=== PATIENT | male | born 1985 | race Two or more races ===

== ENCOUNTER 2019-07-25 06:34 | Emergency (ER) | payer OTHER ==
[2019-07-25] MEDS ORDERED: Aspirin 81 MG Tab.Chew PO ONE (07:01)
[2019-07-25] MEDS ORDERED: Sodium Chloride 0.9% 10 ML Syringe FLUSH PRN (07:01)
[2019-07-25] MEDS ORDERED: Sodium Chloride 0.9% 2.5 ML Syringe FLUSH PRN (07:01)
--- NOTE | 2019-07-25 07:08 | EDM.PDOC ---
ED HPI GENERAL MEDICAL PROBLEM - General Chief Complaint: Chest Pain Stated Complaint: CHEST PAIN Time Seen by Provider: 07/25/19 06:56 Source of Information: Reports: Patient History Limitations: Reports: No Limitations - History of Present Illness INITIAL COMMENTS - FREE TEXT/NARRATIVE: History of present illness: []Patient states he woke up yesterday morning at 4:30 with substernal sharp chest pain that was nonradiating. Has never had this pain in the past. He denies any shortness of breath, dizziness, sweatiness or syncope. He took Motrin for the pain and called in sick for work yesterday and is also requesting a work note. All day yesterday in bed but the pain continued. It is worse with deep breathing. He denies any recent illness including fevers, chills , cough or any other symptoms. Review of systems: As per history of present illness and below otherwise all systems reviewed and negative. Past medical history: As per history of present illness and as reviewed below otherwise noncontributory. Surgical history: As per history of present illness and as reviewed below otherwise noncontributory. Social history: No reported history of drug or alcohol abuse. Family history: As per history of present illness and as reviewed below otherwise noncontributory. Physical exam: General: Well developed, well nourished in NAD HEENT: Atraumatic, normocephalic, pupils reactive, negative for conjunctival pallor or scleral icterus, mucous membranes moist, throat clear, neck supple, nontender, trachea midline. Lungs: Clear to auscultation, breath sounds equal bilaterally, chest nontender. No rales or rhonchi Heart: S1S2, regular, negative for clicks, rubs, or JVD. Abdomen: NABS, Soft, nondistended, nontender. Negative for masses or hepatosplenomegaly. Negative for costovertebral tenderness. Pelvis: Stable nontender. Genitourinary: Deferred. Rectal: Deferred. Extremities: Atraumatic, negative for cords or calf pain. Neurovascular unremarkable. Neuro: Awake, alert, oriented. Cranial nerves II through XII unremarkable. Cerebellum unremarkable. Motor and sensory unremarkable throughout. Exam nonfocal. Skin:warm and dry Diagnostics: EKG, chest x-ray, CBC, chemistry, troponin Therapeutics: Aspirin, Toradol ED Course: stable Impression: pleurisy Prescriptions: none Plan: IBU for pain, follow up with pmd Definitive disposition and diagnosis as appropriate pending reevaluation and review of above. chest Pain Score (Numeric/FACES): 5 - Related Data Allergies Allergy/AdvReac Type Severity Reaction Status Date / Time No Known Allergies Allergy Verified 07/25/19 06:44 Home Meds: Home Meds . [No Known Home Meds] 10/03/18 [History] Past Medical History - Past Health History Medical/Surgical History: Denies Medical/Surgical History - Infectious Disease History Infectious Disease History: Reports: Chicken Pox Social & Family History - Family History Family Medical History: Noncontributory Cardiac: Reports: Hypertension - Tobacco Use Smoking Status *Q: Current Every Day Smoker Years of Tobacco use: 2 Packs/Tins Daily: 1 - Caffeine Use Caffeine Use: Reports: Coffee - Recreational Drug Use Recreational Drug Use: No ED ROS GENERAL - Review of Systems Review Of Systems: See Below ED EXAM, GENERAL - Physical Exam Exam: See Below Course - Vital Signs Last Recorded V/S: Last Vital Signs Temp 97.3 F 07/25/19 06:34 Pulse 56 L 07/25/19 07:59 Resp 16 07/25/19 07:59 BP 106/63 07/25/19 07:59 Pulse Ox 98 07/25/19 07:59 - Orders/Labs/Meds Orders: Active Orders 24 hr Category Date Time Status Cardiac Monitoring [RC] . DIRECTED Care 07/25/19 06:40 Active EKG Documentation Completion [RC] STAT Care 07/25/19 06:40 Active Oxygen Therapy, ED [RC] ASDIRECTED Care 07/25/19 06:40 Active Pulse Oximetry [RC] ASDIRECTED Care 07/25/19 06:40 Active Sodium Chloride 0.9% [Saline Flush] Med 07/25/19 07:01 Active 10 ml FLUSH ASDIRECTED PRN Sodium Chloride 0.9% [Saline Flush] Med 07/25/19 07:01 Active 2.5 ml FLUSH ASDIRECTED PRN Saline Lock Insert [OM.PC] Stat Oth 07/25/19 07:01 Ordered Medication Orders Sodium Chloride (Saline Flush) 10 ml FLUSH ASDIRECTED PRN PRN Reason: Keep Vein Open Last Admin: 07/25/19 07:13 Dose: 10 ml Sodium Chloride (Saline Flush) 2.5 ml FLUSH ASDIRECTED PRN PRN Reason: Keep Vein Open Last Admin: 07/25/19 07:13 Dose: 2.5 ml Labs: Laboratory Tests 07/25/19 07/25/19 Range/Units 07:10 07:10 WBC 8.92 (4.0-11.0) K/uL RBC 5.23 (4.50-5.90) M/uL Hgb 15.9 (13.0-17.0) g/dL Hct 46.2 (38.0-50.0) % MCV 88.3 (80.0-98.0) fL MCH 30.4 (27.0-32.0) pg MCHC 34.4 (31.0-37.0) g/dL RDW Std Deviation 44.7 (28.0-62.0) fl RDW Coeff of Winnie 14 (11.0-15.0) % Plt Count 230 (150-400) K/uL MPV 10.10 (7.40-12.00) fL Neut % (Auto) 50.3 (48.0-80.0) % Lymph % (Auto) 36.1 (16.0-40.0) % Hamlin % (Auto) 9.8 (0.0-15.0) % Eos % (Auto) 3.5 (0.0-7.0) % Baso % (Auto) 0.3 (0.0-1.5) % Neut # (Auto) 4.5 (1.4-5.7) K/uL Lymph # (Auto) 3.2 H (0.6-2.4) K/uL Hamlin # (Auto) 0.9 H (0.0-0.8) K/uL Eos # (Auto) 0.3 (0.0-0.7) K/uL Baso # (Auto) 0.0 (0.0-0.1) K/uL Nucleated RBC % 0.0 /100WBC Nucleated RBCs # 0 K/uL Sodium 139 (136-148) mmol/L Potassium 4.2 (3.5-5.1) mmol/L Chloride 103 (98-107) mmol/L Carbon Dioxide 28.3 (21.0-32.0) mmol/L BUN 11 (7.0-18.0) mg/dL Creatinine 0.9 (0.8-1.3) mg/dL Est Cr Clr Drug Dosing 113.47 mL/min Estimated GFR (MDRD) > 60.0 ml/min Glucose 90 (74-106) mg/dL Calcium 8.8 (8.5-10.1) mg/dL Total Bilirubin 0.6 (0.2-1.0) mg/dL AST 23 (15-37) IU/L ALT 28 (14-63) IU/L Alkaline Phosphatase 76 (46-116) U/L Troponin I < 0.050 (0.000-0.056) ng/mL Total Protein 7.7 (6.4-8.2) g/dL Albumin 3.8 (3.4-5.0) g/dL Globulin 3.9 (2.6-4.0) g/dL Albumin/Globulin Ratio 1.0 (0.9-1.6) Meds: Medications Generic Name Dose Route Start Last Admin Trade Name [place] PRN Reason Stop Dose Admin Sodium Chloride 10 ml 07/25/19 07:01 07/25/19 07:13 Saline Flush FLUSH 10 ml ASDIRECTED PRN Administration Keep Vein Open Sodium Chloride 2.5 ml 07/25/19 07:01 07/25/19 07:13 Saline Flush FLUSH 2.5 ml ASDIRECTED PRN Administration Keep Vein Open Discontinued Medications Generic Name Dose Route Start Last Admin Trade Name Zulma PRN Reason Stop Dose Admin Aspirin 324 mg 07/25/19 07:01 07/25/19 07:13 Aspirin PO 07/25/19 07:02 324 mg ONETIME ONE Administration Departure - Departure Time of Disposition: 07:59 Disposition: Home, Self-Care 01 Condition: Good Clinical Impression: Pleurisy Instructions: Pleurisy, [id number] Referrals: PCP,None [Primary Care Provider] - Forms: ED Department Discharge - My Orders Last 24 Hours: My Active Orders 07/25/19 07:01 Sodium Chloride 0.9% [Saline Flush] 10 ml FLUSH ASDIRECTED PRN Sodium Chloride 0.9% [Saline Flush] 2.5 ml FLUSH ASDIRECTED PRN Saline Lock Insert [OM.PC] Stat - Assessment/Plan Last 24 Hours: My Active Orders 07/25/19 07:01 Sodium Chloride 0.9% [Saline Flush] 10 ml FLUSH ASDIRECTED PRN Sodium Chloride 0.9% [Saline Flush] 2.5 ml FLUSH ASDIRECTED PRN Saline Lock Insert [OM.PC] Stat
--- NOTE | 2019-07-25 07:31 | CR ---
HISTORY: Chest pain. TECHNIQUE: One view of the chest. COMPARISON: No prior. FINDINGS: Calcified granuloma within the right lateral costophrenic angle. No acute lung infiltrate or pulmonary edema. No pneumothorax or pleural effusion. Cardiac size within normal limits. No pulmonary vascular redistribution. IMPRESSION: 1. No acute disease. 2. Calcified granuloma within the right lateral costophrenic angle. Dictated by Francesco Sam MD @ 07/25/2019 7:30:51 AM Dictated by: Francesco Sam MD @ 07/25/2019 07:30:56 (Electronically Signed)
[2019-07-25 07:50] LABS: BLOOD UREA NITROGEN,BUN 11 mg/dL (7.0-18.0); CARBON DIOXIDE,CO2 28.3 mmol/L (21.0-32.0); CHLORIDE,CL 103 mmol/L (98-107); GLUCOSE RANDOM 90 mg/dL (74-106); POTASSIUM,K 4.2 mmol/L (3.5-5.1); SODIUM,NA 139 mmol/L (136-148)
== END 2019-07-25 08:10 | disposition home or self-care (01) ==
LOC: MW.ED 06:34
DX: R09.1 Pleurisy (principal); F17.210 Nicotine dependence, cigarettes, uncomplicated
CPT/HCPCS: 36415; 71045; 80053; 84484; 85025; 93005; 99285; A9270

== ENCOUNTER 2021-06-10 18:33 | Emergency (ER) | payer SELFPAY ==
--- NOTE | 2021-06-10 19:09 | EDM.PDOC ---
ED HPI GENERAL MEDICAL PROBLEM - General Chief Complaint: Upper Extremity Injury/Pain Stated Complaint: FELL AND BENT RIGHT INDEX FINGER BACK Time Seen by Provider: 06/10/21 18:39 Source of Information: Reports: Patient History Limitations: Reports: No Limitations - History of Present Illness INITIAL COMMENTS - FREE TEXT/NARRATIVE: HISTORY AND PHYSICAL: History of present illness: Patient is a 36-year-old male who presents to the emergency room with complaints of right index finger pain. Patient states he was falling and attempted to catch himself, causing his right index finger to hyperextend backward. Patient denies any fever, chills, headache, change in vision, syncope or near syncope. Denies any chest pain, back pain, shortness of breath or cough. Denies any GI or symptoms. Review of systems: As per history of present illness and below otherwise all systems reviewed and negative. Past medical history: As per history of present illness and as reviewed below otherwise noncontributory. Surgical history: As per history of present illness and as reviewed below otherwise noncontributory. Social history: See social history for further information Family history: As per history of present illness and as reviewed below otherwise noncontributory. Physical exam: General: Well developed and well nourished. Alert and orientated x 3. Nontoxic in appearance and in no acute distress. Vital signs are stable and have been reviewed by me. Nursing notes were reviewed. HEENT: Atraumatic, normocephalic, pupils equal and reactive bilaterally, negative for conjunctival pallor or scleral icterus, mucous membranes moist, trachea midline. No drooling or trismus noted. No meningeal signs. No hot potato voice noted. Lungs: Clear to auscultation bilaterally. Normal work of breathing, no accessory muscles used. Heart: S1S2, regular rate and rhythm without overt murmur, gallops, or rubs. No JVD. No peripheral edema Abdomen: Soft, nondistended, nontender. Skin: Mild soft tissue swelling at base of right index finger. Skin is intact, warm, dry. No lesions or rashes noted. Hematologic: No petechiae or purpra. Mucosa appropriate color and normal nail bed color and refill. Extremities: Moves all extremities per self without difficulty or deficits. Good flexion and extension of affected finger. Pain with palpation of PIP of right index finger. SEE SKIN. Cap refill less than 3 seconds. Neurovascular unremarkable. Neuro: Awake, alert, oriented. Cranial nerves II through XII unremarkable. Cerebellum unremarkable. Motor and sensory unremarkable throughout. Exam nonfocal. Psychiatric: Mood and affect are appropriate. Normal thought process. Answering questions appropriately. Notes: *This patient was seen and evaluated during the 2019 SARS-CoV-2 novel coronavirus pandemic period. Community viral transmission is ongoing at time of this encounter and the emergency department is operating under pandemic response procedures. Patient is a 36-year-old male who presents to the emergency room with complaints of a hyperextension injury of his right index finger. He has pain at the PIP joint. Otherwise has full range of motion with mild swelling noted at the base. We will obtain an x-ray. I did offer to give him something for pain which he declines at this time. X-ray shows no acute findings. 1/2 cast fiber glass splint for hyperextension injury of right index finger. To wear over the next 1-3 days or until follow up with hand surgeon. I have talked with the patient about today's findings, in addition to providing specific details for plan of care. Reassessment at the time of disposition demonstrates that the patient is in no acute distress. The patient is stable for discharge, counseling was provided and we discussed in great detail signs and symptoms that would prompt them to return to the Emergency Department. Medication, follow up and supportive care measures were reviewed and discussed. Voices understanding and is agreeable to plan of care. Denies any further questions or concerns at this time. Diagnostics: Finger x-ray Therapeutics: Fiberglas splint for comfort Prescription: Ibuprofen Impression: Hyper extension injury of finger Plan: 1. You were evaluated today on an emergent basis. Your x-ray shows no fracture. I would like you to rest, ice and elevate extremity as able. Wear the splint over the next few days for comfort. 2. You can alternate Tylenol and ibuprofen as needed for pain and fever management. 3. We encourage you to follow up with your primary care provider and/or hand surgeon next few days for re-evaluation and further care/management. 4. If your symptoms should worsen, new symptoms develop or any of the signs and symptoms we discussed should arise please return to the emergency room or call 911 (if needed). Definitive disposition and diagnosis as appropriate pending reevaluation and review of above. right index finger Pain Score (Numeric/FACES): 8 - Related Data Allergies Allergy/AdvReac Type Severity Reaction Status Date / Time No Known Allergies Allergy Verified 06/10/21 18:58 Home Meds: Home Meds Ibuprofen 800 mg PO TID PRN #20 tablet 06/10/21 [Rx] Past Medical History - Past Health History Medical/Surgical History: Denies Medical/Surgical History HEENT History: Reports: None Cardiovascular History: Reports: None Respiratory History: Reports: None Gastrointestinal History: Reports: None Genitourinary History: Reports: None Musculoskeletal History: Reports: None Neurological History: Reports: None Psychiatric History: Reports: None Endocrine/Metabolic History: Reports: None Hematologic History: Reports: None Immunologic History: Reports: None Oncologic (Cancer) History: Reports: None Dermatologic History: Reports: None - Infectious Disease History Infectious Disease History: Reports: Chicken Pox - Past Surgical History Head Surgeries/Procedures: Reports: None HEENT Surgical History: Reports: None Cardiovascular Surgical History: Reports: None Respiratory Surgical History: Reports: None GI Surgical History: Reports: None Male Surgical History: Reports: None Endocrine Surgical History: Reports: None Neurological Surgical History: Reports: None Musculoskeletal Surgical History: Reports: None Oncologic Surgical History: Reports: None Dermatological Surgical History: Reports: None Social & Family History - Family History Family Medical History: No Pertinent Family History Cardiac: Reports: Hypertension - Tobacco Use Tobacco Use Status *Q: Current Every Day Tobacco User Years of Tobacco use: 20 Packs/Tins Daily: 0.5 - Caffeine Use Caffeine Use: Reports: None - Recreational Drug Use Recreational Drug Use: No Review of Systems - Review of Systems Review Of Systems: Comprehensive ROS is negative, except as noted in HPI. ED EXAM, GENERAL - Physical Exam Exam: See Below (See dictation) Course - Vital Signs Last Recorded V/S: Last Vital Signs Temp 97.4 F 06/10/21 18:56 Pulse 76 06/10/21 18:56 Resp 18 06/10/21 18:56 BP 123/72 06/10/21 18:56 Pulse Ox 98 06/10/21 18:56 - Orders/Labs/Meds Orders: Active Orders 24 hr Category Date Time Status Fingers Second Digit Rt F6 [CR] Stat Exams 06/10/21 19:00 Taken DME for Discharge [COMM] Stat Oth 06/10/21 19:48 Ordered Departure - Departure Time of Disposition: 19:51 Disposition: Home, Self-Care 01 Clinical Impression: Hyperextension injury of finger Qualifiers: Encounter type: initial encounter Laterality: right Qualified Code(s): S69.81XA - Other specified injuries of right wrist, hand and finger(s), initial encounter - Discharge Information Prescriptions: Ibuprofen 800 mg PO TID PRN #20 tablet PRN Reason: Pain Instructions: Crush Injury of the Hand, [id number] Referrals: PCP,None [Primary Care Provider] - Forms: ED Department Discharge Additional Instructions: The following information is given to patients seen in the emergency department who are being discharged to home. This information is to outline your options for follow-up care. We provide all patients seen in our emergency department with a follow-up referral. The need for follow-up, as well as the timing and circumstances, are variable depending upon the specifics of your emergency department visit. If you don't have a primary care physician on staff, we will provide you with a referral. We always advise you to contact your personal physician following an emergency department visit to inform them of the circumstance of the visit and for follow-up with them and/or the need for any referrals to a consulting specialist. The emergency department will also refer you to a specialist when appropriate. This referral assures that you have the opportunity for follow-up care with a specialist. All of these measure are taken in an effort to provide you with optimal care, which includes your follow-up. Under all circumstances we always encourage you to contact your private physician who remains a resource for coordinating your care. When calling for follow-up care, please make the office aware that this follow-up is from your recent emergency room visit. If for any reason you are refused follow-up, please contact the [facility] at and asked to speak to the emergency department charge nurse. [facility] [address] [place] [id number] [facility] [address] [place] [id number] Thank you for choosing the [facility] emergency department in [place] for your medical needs today. It was a pleasure caring for you. Today you were seen in the emergency department for hyper extension injury. 1. You were evaluated today on an emergent basis. Your x-ray shows no fracture. I would like you to rest, ice and elevate extremity as able. Wear the splint over the next few days for comfort. 2. You can alternate Tylenol and ibuprofen as needed for pain and fever management. 3. We encourage you to follow up with your primary care provider and/or hand surgeon next few days for re-evaluation and further care/management. 4. If your symptoms should worsen, new symptoms develop or any of the signs and symptoms we discussed should arise please return to the emergency room or call 911 (if needed). Sepsis Event Note (ED) - Evaluation Sepsis Screening Result: No Definite Risk - Focused Exam Vital Signs: Vital Signs Temp Pulse Resp BP Pulse Ox 06/10/21 20:49 67 18 112/74 97 06/10/21 18:56 97.4 F 76 18 123/72 98 - My Orders Last 24 Hours: My Active Orders 06/10/21 19:00 Fingers Second Digit Rt F6 [CR] Stat 06/10/21 19:48 DME for Discharge [COMM] Stat - Assessment/Plan Last 24 Hours: My Active Orders 06/10/21 19:00 Fingers Second Digit Rt F6 [CR] Stat 06/10/21 19:48 DME for Discharge [COMM] Stat
--- NOTE | 2021-06-10 20:51 | CR ---
Indication: Hyperextension, pain at base of finger. Technique: Right hand 2nd digit, 3 views. Comparison: None. Findings: No acute fracture or dislocation. Joint spaces are well preserved. Soft tissues are unremarkable. Impression: No acute findings. Dictated by Gracie Mauricio MD @ 06/10/2021 8:49:[address] Gracie Mauricio @ Jun 10 2021 8:49PM
== END 2021-06-10 20:52 | disposition home or self-care (01) ==
LOC: MW.ED 18:33
DX: S69.81XA Other specified injuries of right wrist, hand and finger(s), initial encounter (principal); Z72.0 Tobacco use; W18.30XA Fall on same level, unspecified, initial encounter
CPT/HCPCS: 29125; 73140-26-F6; 73140-F6; 99283-25

== ENCOUNTER 2025-04-13 21:29 | Emergency (ER) | payer SELFPAY ==
[2025-04-13] MEDS: Ibuprofen 800 MG Tab PO ONE (22:10)
[2025-04-13] MEDS: Acetaminophen/HYDROcodone 325-10 MG Tab PO ONE (22:50)
== END 2025-04-13 23:16 ==
LOC: MW.ED 21:29
DX: S82.832A Other fracture of upper and lower end of left fibula, initial encounter for closed fracture (principal); Z79.899 Other long term (current) drug therapy; W18.39XA Other fall on same level, initial encounter; Y93.89 Activity, other specified
CPT/HCPCS: 73590; 73610; 99284; A9270; 99283

== ENCOUNTER 2025-04-25 07:04 | Day surgery (SDC) | payer OTHER ==
[2025-04-25] MEDS ORDERED: ceFAZolin 2 GM in Water For Injection, Sterile 20 ML IVPUSH ONE (08:00)
[2025-04-25] MEDS ORDERED: fentaNYL 50 MCG/ML SDV IVPUSH PRN (08:23)
[2025-04-25] MEDS ORDERED: Ondansetron 4 MG/2 ML SDV IVPUSH PRN (08:23)
[2025-04-25] MEDS: Lactated Ringers 1,000 ML IV SCH (08:23)
[2025-04-25] MEDS ORDERED: Naloxone 0.4 MG/ML SDV IVPUSH PRN (08:23)
[2025-04-25] MEDS ORDERED: Albuterol 0.083% 2.5 MG/3 ML Neb Soln NEB PRN (08:23)
[2025-04-25] MEDS ORDERED: Ketamine HCL/NACL, ISO-OSM 50 MG/5 ML Syringe ONE (08:35)
[2025-04-25] MEDS ORDERED: fentaNYL 100 MCG/2 ML SDV ONE (08:35)
[2025-04-25] MEDS ORDERED: Propofol 200 MG/20 ML SDV ONE (08:35)
[2025-04-25] MEDS ORDERED: Ropivacaine 0.5% 5 MG/ML 30 ML SDV ONE (08:36)
[2025-04-25] MEDS ORDERED: dexmedeTOMIDine HCl 200 MCG/2 ML SDV ONE (08:37)
[2025-04-25] MEDS ORDERED: Bupivacaine 0.5%/EPINEPHrine 1:200,000 30 ML SDV ONE (08:44)
[2025-04-25] MEDS ORDERED: fentaNYL 250 MCG/5 ML SDV ONE (09:28)
[2025-04-25] MEDS ORDERED: Ondansetron 4 MG/2 ML SDV ONE (09:44)
== END 2025-04-25 12:05 | disposition home or self-care (01) ==
LOC: MW.SDS 07:04
PROVIDERS: ATTEND Orthopaedic Surgery
DX: S82.832A Other fracture of upper and lower end of left fibula, initial encounter for closed fracture (principal); S93.422A Sprain of deltoid ligament of left ankle, initial encounter; F17.210 Nicotine dependence, cigarettes, uncomplicated; X58.XXXA Exposure to other specified factors, initial encounter
CPT/HCPCS: 27792; 76000; J0690; J2003; J2405; J2704; J2795; J3010; J7120; J0665; J3490